=== PATIENT | female | born 1980 | race Caucasian/White ===

== ENCOUNTER 2016-09-02 01:08 | Inpatient (IN) | payer MEDICARE, MEDICAID ==
[~2016-09-02] VITALS: Ht 162.6 cm; Wt 101.7 kg
[~2016-09-02 01:08] MED LIST: /DULO30CA OR; ABIL10TA OR; EFFE37.527 OR; HYDR50TA8 OR; LAMI25TA OR; ZOLO50TA OR
[2016-09-02] MEDS ORDERED: traZODone 50 MG TAB PO PRN (02:15)
[2016-09-02] MEDS ORDERED: MOM 30ML SUSPENSION UDC PO PRN (02:15)
[2016-09-02] MEDS ORDERED: MAALOX 30 ML SUSP *UDC PO PRN (02:15)
[2016-09-02] MEDS ORDERED: PRAZ1CAP PO (02:35)
[2016-09-02] MEDS ORDERED: ATIV1TAB10 PO (02:35)
[2016-09-02] MEDS ORDERED: LAMO200T PO (02:35)
[2016-09-02] MEDS ORDERED: FERR325T3 PO (02:35)
--- NOTE | 2016-09-02 02:41 | EDDOCDS ---
Physician Documentation [facility] Name: Juliette Muller Age: 35 yrs Sex: Female : 1980 Arrival Date: 09/02/2016 Time: 01:08 Bed [facility] Private MD: Disposition: 09/02/16 02:35 Hospitalization ordered by Jace Sheriff for Inpatient Admission. Preliminary diagnosis are Major depressive disorder, recurrent, Suicidal ideations. - Bed requested for Admit. - Status is Inpatient Admission. mf4 - Condition is Stable. - Problem is an ongoing problem. - Symptoms are unchanged. Historical: - Allergies: no known allergies; - Home Meds: 1. lamotrigine 200 mg Oral tab 1 tab once daily 2. prazosin 2 mg Oral cap 1 cap nightly 3. ferrous sulfate 325 mg (65 mg iron) Oral cpER daily 4. lorazepam 0.5 mg Oral tab 1 tab nightly - PMHx: Anxiety; Depression; - PSHx: Gastric Bypass; skin removal; - Social history: Smoking status: Patient uses tobacco products, heavy tobacco smoker. No barriers to communication noted, The patient speaks fluent Uzbek. - Family history: Not pertinent. - : The pt / caregiver states he / she is not on anticoagulants. Home medication list is obtained from the facility OCT. - Exposure Risk Screening:: None identified. [employer]: 09/02 01:21 LMP 08/25/2016Aug Vital Signs: 01:22 BP 144 / 92; Pulse 83; Resp 16; Temp 96.5(T); Pulse Ox 98% on R/A; Pain 0/10; mf4 MDM: 01:30 Consult PFS/PSA/Socail Worker: Cleared medically for eval ordered. cs11 01:35 Consult PFS/PSA/Socail Worker: Cleared medically for eval complete. hm1 01:40 Financial registration complete. [facility] 01:50 [place] Payment Agreement was scanned into [employer] and attached to record. sl 02:05 Admit to IM: ordered. EDMS 02:05 REGULAR DIET ordered. EDMS 02:14 [facility] Legal paperwork was scanned into [employer] and attached to record. hm1 02:36 BED REQUEST+ADM ordered. EDMS Signatures: Dispatcher [employer] EDJannette Vazquez RN RN jan McManaman, Heather, PSA PSA hm1 Ferringo,Ayaan,REPAIR SPECIALIST REPAIR SPECIALIST mf4 Carrington Dunlap DO DO cs11 Heide Shaikh,RANDALL REPAIR SPECIALIST [facility] [place] Glynn gil The chart was reviewed and I authenticate all verbal orders and agree with the evaluation and treatment provided.Attachments: 01:50 [facility] Payment Agreement [facility] MTDD
--- NOTE | 2016-09-02 02:42 | EDDOCDS ---
Nurse's Notes [facility] Name: Juleitte Muller Age: 35 yrs Sex: Female : 1980 Arrival Date: 09/02/2016 Time: 01:08 Bed [facility] Private MD: Diagnosis: Major depressive disorder, recurrent;Suicidal ideations Presentation: 09/02 01:12 Presenting complaint: transfer from [facility] for psych evaluation. Pt is paul patient of [facility] and per patient "was taken off a lot of her meds". states she has been depressed and having thoughts of cutting herself and suicide with a plan to overdose. Mental Health Triage Level: Level 2: The patient displays active suicidal ideations. Suicide/Homicide risk assessment- The patient admits to and/or has been reported to be having suicidal ideations. The patient reports that he/she has a prior history of suicide attempt and/or organized plan. Status: Patient is not a service shop foreman or dependent. Transition of care: patient was not received from another setting of care. 01:12 Acuity: GLENDA Level 3 aug 01:12 Method Of Arrival: Ambulance aug Triage Assessment: 01:21 General: Appears in no apparent distress, Behavior is cooperative, quiet. HIV screening aug for this visit Offered previously. at [facility]. DIAMOND SIZER: 01:21 LMP 08/25/2016Aug Historical: - Allergies: no known allergies; - Home Meds: 1. lamotrigine 200 mg Oral tab 1 tab once daily 2. prazosin 2 mg Oral cap 1 cap nightly 3. ferrous sulfate 325 mg (65 mg iron) Oral cpER daily 4. lorazepam 0.5 mg Oral tab 1 tab nightly - PMHx: Anxiety; Depression; - PSHx: Gastric Bypass; skin removal; - Social history: Smoking status: Patient uses tobacco products, heavy tobacco smoker. No barriers to communication noted, The patient speaks fluent Northern Irish. - Family history: Not pertinent. - : The pt / caregiver states he / she is not on anticoagulants. Home medication list is obtained from the facility OCT. - Exposure Risk Screening:: None identified. Screenin:24 Screening information is obtained from the patient. Fall risk: No risks identified. slm Assistance ADL's: requires no assistance with activities of daily living. Abuse/DV Screen: The patient / caregiver reports he/she is: not in a situation that causes fear, pain or injury. Nutritional screening: No deficits noted. Advance Directives: Currently, there is no health care proxy. There is no active DNR order. There is no living will. There is no Power of Wire Bender Hand. Advance directive information has not previously been placed in an [facility] medical record. Further advance directive information is declined. home support is adequate. Assessment: 01:30 General: Appears in no apparent distress, Behavior is cooperative. Pain: Location: ld5 mouth Pain currently is 6 out of 10 on a pain scale. Neurological: Level of Consciousness is awake, alert. Respiratory: Airway is patent Respiratory effort is even, unlabored, Breath sounds are clear bilaterally. GI: Abdomen is obese, Bowel sounds present X 4 quads. Abd is soft and non tender X 4 quads. Denies nausea, vomiting. : Denies burning with urination, pain with urination. Derm: Skin is intact, Skin is dry. Musculoskeletal: Range of motion intact in all extremities. 01:54 General: lorazepam taken to pharmacy. . mf4 02:24 General: Appears in no apparent distress, comfortable, Behavior is cooperative, slm pleasant. Respiratory: Airway is patent Respiratory effort is even, unlabored. Mental Health Eval: 01:27 Mental health consult is initiated at 01:20. Status: The patient is not a hm1 service shop foreman or dependent. [facility] Behavioral Health: The patient is not an established patient of [facility] Behavioral Health. Referral Information: Evaluation referral is generated by Masoud. The patient was referred for evaluation because pt self-presented to [facility] due to worsening depression and thoughts of suicide. Subjective: The patients chief complaint is suicidal ideation with a plan to overdose on her pills. Delusions are denied. Patient's mood is depressed, Hallucinations are denied. Pt reports that she has been stable for the past 5-6 years on the same medications, she states that her psychiatrist, Dr. Wynn, felt that her depression had improved and subsequently discontinued most of her medications, which pt reports caused her to "go downhill fast". Pt reports that she attempted to work with her provider, she had an appointment this week and reported that she was feeling more depressed and had been having thoughts of cutting herself, however she was continued on the same regimen and pt continued to feel more depressed and anxious. Pt reports racing thoughts and taking more and more of her Ativan to attempt to maintain sleep. Pt reports feeling like she wants to cut herself "for a release" over the past month, and states that in the past 1-2 days she started to have thoughts of suicide. Pt states that she was thinking of overdosing and brought herself to the hospital because she felt that she could no longer control the thoughts. Subjective: pt also reports financial problems, states that her SSI/SSD is going to be discontinued in September 2016 as they have determined that she is no longer eligible. She states that she has been looking for work and has been unsuccessful. Mental Health history: anxiety, depression, Mental Health Admissions: pt has multiple previous psychiatric admissions, most recently 2010. Mental Health history: Current Outpatient Mental Health Services: Psychiatrist / Agency: Dr. Wynn, [facility]. Therapist / Agency: Jannette Hong [facility]. Current living environment is Family / Home Support: pt lives with her and [id number], she reports a good, supportive relationship with both. Patient presents to Emergency Department with the following symptoms within the past 2 weeks: anxiety, depressed mood, feelings of helplessness/hopelessness, labile mood, sleep disturbance - insomnia, suicidal ideation with plan for pills. Substance abuse: Pt denies. Mental status exam: Patients appearance is appropriate, Patient's behavior is cooperative, Speech is normal. Affect is flat. Mood is depressed. Hallucinations are denied. Appetite is normal. Memory is fair. Energy level is tires easily. Content of thought is depressive. with thoughts of suicide Thought process is intact. Cognitive level is oriented to person, place, time and situation Patient's insight is fair. Judgement is fair. Rapport with interviewer is good. Suicidal Ideation present with a plan to kill self by pills. Homicidal ideation is not present. 02:14 Disposition: Medically cleared for disposition by Carrington Dunlap DO Psychiatric Consult hm1 is performed by phone with Dr Jace Sheriff MD. [facility] Admission Criteria: The patient is experiencing suicidal ideation. The patient requires continuous observation and/or control to protect self, others or property. The patient's care requires a multi-modal treatment plan under close supervision and coordination due to the complexity and severity of the patient's symptoms. The patient requires administration and monitoring of psychoactive medications by skilled medical providers due to the side effects of the psychoactive medications or significant dosage adjustments. Legal Status: Patient's legal status will be [facility] admission: 937. [place] Safe Act: [place] Safe Act is applicable to this patient. The patient poses a risk to self or other and the Nursing Virtual Office Assistant has been notified. He/She will enter the patient's data. DSM-V Differential Diagnosis: Major Depressive Disorder recurrent episode (F33.0) moderate (F33.1). Insurance Pre-Certification: Not Required, Medicaid/Medicare. Family Notification: Notification to family of patient status is not currently needed or appropriate. Awaiting: referral hospital acceptance. Vital Signs: 01:22 BP 144 / 92; Pulse 83; Resp 16; Temp 96.5(T); Pulse Ox 98% on R/A; Pain 0/10; mf4 Vitals: 01:21 Log In Time N/A - ambulance arrival. aug ED Course: 01:08 Patient visited by Zoila Acevedo, [employer]. ml3 01:08 Patient moved to [facility] 01:09 Patient moved to [facility] ml3 01:19 Triage Initiated aug 01:23 Patient visited by Esteban Crabtree. rn1 01:30 Carrington Dunlap DO is Attending Physician. cs11 01:30 Patient visited by Carrington Dunlap DO. cs11 01:31 Patient visited by Esteban Crabtree. rn1 01:48 Patient visited by Esteban Crabtree. rn1 01:49 Patient name changed from Juliette\\S\\\\S\\Mcquoid\\S\\ to Juliette\\S\\Cydney\\S\\Mcquoid. EDMS 01:50 Patient name changed from Juliette\\S\\Cydney\\S\\Mcquoid\\S\\ to Juliette\\S\\E\\S\\Mcquoid. EDMS 01:50 [facility] Payment Agreement was scanned into [employer] and attached to record. slh 02:06 Patient visited by Esteban Crabtree. rn1 02:14 E Legal paperwork was scanned into [employer] and attached to record. hm1 02:21 Patient visited by Esteban Crabtree. rn1 02:24 No IV's were initiated during this patient's visit. No procedures done that require slm assistance. 02:30 Patient visited by Esteban Crabtree. rn1 02:34 Jace Sheriff MD is Hospitalizing Provider. cs11 Attachments: 02:14 [facility] Legal paperwork hm1 Order Results: There are currently no results for this order. Outcome: 02:24 Discharge Assessment: Patient awake, alert and oriented x 3. No cognitive and/or slm functional deficits noted. Patient verbalized understanding of disposition instructions. patient administered narcotics - no. The following High Risk Discharge criteria are identified: None. Admitted to Psych accompanied by tech, via wheelchair, with chart. Condition: good. No special radiology studies were completed. Property removed, inventory done, secured in belongings bag- placed in locked locker. 02:35 Decision to Hospitalize by Provider. cs11 02:40 Patient left the ED. mf4 Signatures: Dispatcher [employer] EDMS Jannette Crabtree, RN RN Zoila Hubbard, [employer] Unit ml3 Trini Lombardi, PSA PSA hm1 Jennie Lemon RN RN ld5 Ayaan Juan LPN LPN mf4 Carrington Dunlap, DO cs11 Heide Shaikh LPN LPN slm Hook, Sandra slh Newman, Robert rn1 [facility]
[2016-09-02 02:51] VITALS: BP 121/79
[2016-09-02] MEDS: ACETAMINOPHEN TAB 650MG DOSE (2X325MG) PO PRN ×3 (03:17→20:13)
--- NOTE | 2016-09-02 11:19 | HPEPDOC ---
Medical History and Physical Date of Admission Sep 02, 2016 at 02:43 History and Physical PCP: Dr Rory COATS ATTENDING: Dr. Jovany Stovall HPI: 35yoF admitted to [facility] for unspecified depressive disorder, being medically examined today. Patient is complaining of a broken tooth right lower molar. This has been aching for the past week. Teeth are in poor condition. She states she has no dentist, she would have to go to [place] and has been unable to do so. Denies any fevers, chills, weakness, fatigue, ZUNIGA, CP, SOB, cough, palpitations, abdominal pain, N/V/D or changes in bowel or bladder habits. PMHx: Depression Anxiety Poor dentition Obesity BMI 38.5 Tobacco use PSHX: Gastric bypass Plastic surgery for excess skin removal SOCHX: Resides in: [facility] Marital Status: Kids: 3 Employment: Unemployed Tobacco use: One pack per day ETOH: Denies Illicit Drugs: States history of excess Soma and Vicodin use in 2007, none since. IV Drug Use: Denies Tattoos done unprofessionally: Denies FAMHX: Mother: Alive, well Father: , [place] at 60 Siblings: She is in contact with one sister and [place] and a half sister in [place] Alive, history of obesity. She has 9 other half siblings. Children: Alive, well. Unexpected deaths due to medical reasons: None. ROS: As noted in HPI, otherwise 11pt ROS of systems reviewed and remarkable only for LMP 08/25/16 PE: GEN: 35yoF, appears stated age. Well-nourished, well developed. No acute distress. Alert and oriented x 3. Pleasant, interactive. HEENT: Normocephalic, atraumatic. Pupils are equal, round, and reactive to light. Extraocular movements are intact. No nystagmus appreciated. Sclera are nonicteric. Conjunctiva without injection. Nose midline. Nasal turbinates without bogginess. EACs both patent BL. TMs both visualized and bennett with good cone of light, no bulging or erythema. No facial asymmetry. Moist mucous membranes. Dentition poor. Rt lower posterior molar with erythema and surrounding tissue erythematous and edematous. Area is TTP. Pharynx pink and moist, no cobblestoning. Neck supple, trachea midline. No lymphadenopathy or thyromegaly appreciated. CHEST: Regular rate and rhythm, +S1, +S2 LUNGS: Clear to auscultation bilaterally. No wheezes, rales, or rhonchi. Breathing appears symmetric and easy. Patient is speaking in full sentences. No accessory muscle use. ABD: Round, soft, non-tender, non-distended. +Bowel sounds throughout. No rebound or guarding. No costovertebral angle tenderness. EXT: Pulses 2+ bilaterally dorsalis pedis and radial. No lower extremity edema appreciated. SKIN: [place], dry, warm. Capillary refill <2sec. No rashes. NEURO: Alert and oriented x 3. Cranial nerves III-XII are intact. No focal deficits appreciated. EKG: pending. Labs [facility] WBC 7.43 Hgb 14.3 Hct 42.4 Plt 404 Gluc 117 BUN 11 SCr 0.806 Cl 109 Na 140 K 4.2 ALT 23 AST 18 TSH 0.401 Hcg neg UA neg. Toxicology Unremarkable. A&P: 35yoF admitted to [facility] for unspecified depressive disorder, 1. Psych. Plan per Psychiatry. Obtain baseline EKG to assure the safety of psychiatric medications as they can prolong the QT interval. 2. Nicotine dependence. Patch available. 3. Poor dentition/dental infection. Augmentin 875 mg by mouth twice a day. Tylenol 650 mg every 4 hours as needed. Arrange dental care follow-up at discharge. 4. Follow up with PCP on discharge. 5. Member was present throughout exam, Minal RIVERA. Vital Signs Vital Signs Label Value Date Time Patient Temperature 95.8 degrees F 09/02/16 0251 Temperature Source Tympanic 09/02/16 0251 Pulse 79 09/02/16 0251 Respiratory Rate 16 bpm 09/02/16 0251 Blood Pressure Assessment 121/79 (93) 09/02/16 0251 Home Medications Scheduled Ferrous Sulfate (Ferrous Sulfate) 325 Mg Tab 325 MG PO DAILY Lamotrigine (Lamotrigine) 200 Mg Tab 200 MG PO DAILY Lorazepam (Ativan) 0.5 Mg Tab 0.5 MG PO QHS Prazosin Hcl (Prazosin HCl) 1 Mg Cap 1 MG PO ASDIRECTED started taking 1 cap qhs and supposed to increase to 2 caps qhs on 09/01 but has not had dose yet Allergies Coded Allergies: No Known Drug Allergy (Verified Allergy, Unknown, 11/14/12) Yolanda Vera Sep 02, 2016 11:19
[2016-09-02] MEDS: NICOTINE 21MG/24HR 1 EA TRANSDERMAL TD SCH (11:34)
[2016-09-02] MEDS: AUGMENTIN 875 MG TAB PO SCH ×2 (12:14→20:13)
[2016-09-02 18:00] VITALS: BP 123/77
--- NOTE | 2016-09-02 18:43 | ECGEPIP ---
Stationary ECG Study [facility] Test Date: 2016-09-02 Pat Name: TRACY ROB Department: Room: [place] [address] Gender: F Day Care Provider: : 1980 Requested By: Yolanda Vera Order Number: [id number] Reading MD: Terry Noriega Measurements Intervals Bowman Rate: 59 P: 1 WY: 137 QRS: 82 QRSD: 100 T: 50 QT: 402 QTc: 400 Interpretive Statements SINUS BRADYCARDIA WITH MARKED SINUS ARRHYTHMIA NO PRIOR TRACING IN THE SYSTEM Electronically Signed On 09-02-2016 18:43:27 EST by Terry Noriega
[2016-09-02] MEDS: ARIPiprazole 10 MG TAB PO SCH (20:13)
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
[2016-09-03] MEDS: ACETAMINOPHEN TAB 650MG DOSE (2X325MG) PO PRN ×3 (03:25→21:38)
[2016-09-03 06:19] VITALS: BP 130/90
[2016-09-03] MEDS: NICOTINE 21MG/24HR 1 EA TRANSDERMAL TD SCH (08:48)
[2016-09-03] MEDS: lamoTRIgine 100MG TAB PO SCH (08:53)
[2016-09-03] MEDS: AUGMENTIN 875 MG TAB PO SCH ×2 (08:53→20:31)
[2016-09-03] MEDS: FERROUS SULFATE 325MG TAB PO SCH (08:53)
[2016-09-03] MEDS ORDERED: buPROPion **XL** TABLET 150MG (WELLBUTRIN XL) PO SCH (09:00)
[2016-09-03] MEDS: buPROPion 75 MG TAB PO SCH (12:27)
[2016-09-03] MEDS: BENZOCAINE 7.5 % LIQ (BABY ORAJEL) TOP PRN ×2 (13:18→20:31)
[2016-09-03 18:00] VITALS: BP 98/56
[2016-09-03] MEDS: ARIPiprazole 10 MG TAB PO SCH (20:31)
--- NOTE | 2016-09-03 23:30 | IPNPDOC ---
[facility] Progress Note Progress Note DATE: 09/03/16 SUBJECTIVE: Patient reports mood as good. She reports intensely level of depression at 0/10. She reports intensely level of anxiety at 0/10. Patient attributes this to the appreciation for all of her support from her family and friends during this admission. She is medically compliant. She reports attending groups and not suffering with hypersomnolence as she did prior to admission. She feels more energetic and to concentrate. She denies thoughts to self injure today. She reports feeling upset that she has dealt with the mental health issue she has over the last month. She reports she will likely find a new patient mental health provider. He expresses upset that she was encouraged to discontinue a medication regimen that had kept her stable psychiatrically over the last 5 years. Patient reports no medication side effects. She reports no issues initiating sleep, but reported waking last night from her sleep due to dental pain. She reports taking a Tylenol and being able to get back to sleep within 1 hour. Patient reports sleeping 7-8 hours last night. Appetite within normal limits. She denies issues with staff or peers on the unit. Patient denies SI/HI, she also denies AH/VH. No bizarre behavior, thoughts, affect, or delusional thoughts expressed during this interview. VITAL SIGNS: Please see below. CURRENT MEDICATIONS: See below. MENTAL STATUS EXAMINATION: Patient is a pleasant, cooperative, obese, causasian female in NAD]. Speech: Is RRR and spontaneous]. Thought processes: [Linear & Goal directed.] Thought content: [Logical, appropriate]. Description of associations: [appropriate]. Description of abnormal or psychotic thoughts: [no perceptual issues] Judgment: [good] Insight: [good] Oriented to: [Time, place and person.] Recent and Remote Memory: [good]. Attention Span and Concentration: [good]. Fund of knowledge: [Adequate] Mood: [euthymic]. Affect: [broad]. ASSESSMENT: [-Bipolar 2 d/o, MRE depressed w/o PFs -PTSD]. PLAN: -Continue remaining psychotropic regimen as currently written. -Continue all home medical medications as written. EDOD: 09/05/16 to her home. TIME SPENT: [30] minutes Vital Signs Vital Signs Date Time Temp Pulse Resp B/P Pulse Ox O2 Delivery O2 Flow Rate FiO2 09/03/16 18:00 97.2 73 16 98/56 Current Medications Current Medications Acetaminophen (Tylenol) 650 mg Q6HP PRN PO HEADACHE or DISCOMFORT Last administered on 09/03/16 21:38; Start 09/02/16 at 02:15; Stop 10/02/16 at 02:14 Al Hydrox/Mg Hydrox/Simethicone (Mylanta) 30 ml Q4HP PRN PO HEARTBURN/ INDIGESTION; Start 09/02/16 at 02:15; Stop 10/02/16 at 02:14 Amoxicillin/ Clavulanate Potassium (Augmentin) 875 mg BID PO Last administered on 09/03/16 20:31; Start 09/02/16 at 09:00; Stop 09/11/16 at 21:01 Aripiprazole (AbiLIFY) 10 mg QHS PO Last administered on 09/03/16 20:31; Start 09/02/16 at 21:00; Stop 10/02/16 at 20:59 Benzocaine (Orajel 7.5%) 1 dose Q3HP PRN TOP DENTAL PAIN Last administered on 20:31; Start 09/03/16 at 09:15; Stop 10/03/16 at 09:14 Bupropion HCl (Wellbutrin Xl) 75 mg DAILY PO ; Start 09/03/16 at 09:00; Stop at 12:10; Status DC Bupropion HCl (Wellbutrin) 75 mg DAILY PO Last administered on 09/03/16 12:27 ; Start 09/03/16 at 09:00; Stop 10/03/16 at 08:59 Ferrous Sulfate (Ferrous Sulfate) 325 mg DAILY PO Last administered on 08:53; Start 09/03/16 at 09:00; Stop 10/03/16 at 08:59 Home Med (Med Rec Complete!) ASDIRECTED XX ; Start 09/02/16 at 02:45; Stop at 03:32; Status DC Lamotrigine (LaMICtal) 200 mg QAM PO Last administered on 09/03/16 08:53; Start 09/03/16 at 09:00; Stop 10/03/16 at 08:59 Magnesium Hydroxide (Milk Of Magnesia) 30 ml DAILYPRN PRN PO CONSTIPATION; Start 09/02/16 at 02:15; Stop 10/02/16 at 02:14 Nicotine (Nicoderm Cq 21mg) 1 patch DAILY TD Last administered on 09/02/16t 11: 34; Start 09/02/16 at 09:00; Stop 10/02/16 at 08:59 Trazodone HCl (Desyrel) 50 mg QHSP PRN PO INSOMNIA; Start 09/02/16 at 02:15; Stop 10/02/16 at 02:14 Allergies Coded Allergies: No Known Drug Allergy (Verified Allergy, Unknown, 11/14/12) KRISTEL CANTRELL MD Sep 03, 2016 23:30
--- NOTE | 2016-09-04 03:42 | EDDOCDS ---
Physician Documentation [facility] Name: Juliette Muller Age: 35 yrs Sex: Female : 1980 Arrival Date: 09/02/2016 Time: 01:08 Bed [facility] Private MD: Disposition: 09/02/16 02:35 Hospitalization ordered by Jace Sheriff for Inpatient Admission. Preliminary diagnosis are Major depressive disorder, recurrent, Suicidal ideations. - Bed requested for Admit. - Status is Inpatient Admission. mf4 - Condition is Stable. - Problem is an ongoing problem. - Symptoms are unchanged. Historical: - Allergies: no known allergies; - Home Meds: 1. lamotrigine 200 mg Oral tab 1 tab once daily 2. prazosin 2 mg Oral cap 1 cap nightly 3. ferrous sulfate 325 mg (65 mg iron) Oral cpER daily 4. lorazepam 0.5 mg Oral tab 1 tab nightly - PMHx: Anxiety; Depression; - PSHx: Gastric Bypass; skin removal; - Social history: Smoking status: Patient uses tobacco products, heavy tobacco smoker. No barriers to communication noted, The patient speaks fluent Central African. - Family history: Not pertinent. - : The pt / caregiver states he / she is not on anticoagulants. Home medication list is obtained from the facility OCT. - Exposure Risk Screening:: None identified. ACID CUTTER: 09/02 01:21 LMP 08/25/2016Aug Vital Signs: 01:22 BP 144 / 92; Pulse 83; Resp 16; Temp 96.5(T); Pulse Ox 98% on R/A; Pain 0/10; mf4 MDM: 01:30 Consult PFS/PSA/Socail Worker: Cleared medically for eval ordered. cs11 01:35 Consult PFS/PSA/Socail Worker: Cleared medically for eval complete. hm1 01:40 Financial registration complete. sl 01:50 [facility] Payment Agreement was scanned into [employer] and attached to record. slh 02:05 Admit to IM: ordered. EDMS 02:05 REGULAR DIET ordered. EDMS 02:14 MHE Legal paperwork was scanned into [employer] and attached to record. hm1 02:36 BED REQUEST+ADM ordered. EDMS 14:20 T-Sheet-- Draft Copy was scanned into [employer] and attached to record. gb 09/03 09:32 PCR was scanned into [employer] and attached to record. Signatures: Dispatcher [employer] EDJannette Vazquez RN RN Fara Platt, Reg Reg gb Trini Lombardi, PSA PSA hm1 Ayaan Juan,DIRECTOR ACUTE DIRECTOR ACUTE mf4 Carrington Dunlap, DO cs11 Heide Shaikh,DIRECTOR ACUTE DIRECTOR ACUTE [place] [facility] The chart was reviewed and I authenticate all verbal orders and agree with the evaluation and treatment provided.Attachments: 09/02 01:50 [facility] Payment Agreement [facility] 14:20 T-Sheet-- Draft Copy Chart Complete MTDD
--- NOTE | 2016-09-04 03:42 | EDDOCDS ---
Nurse's Notes [facility] Name: Juliette Muller Age: 35 yrs Sex: Female : 1980 Arrival Date: 09/02/2016 Time: 01:08 Bed [facility] Private MD: Diagnosis: Major depressive disorder, recurrent;Suicidal ideations Presentation: 09/02 01:12 Presenting complaint: transfer from [facility] for psych evaluation. Pt is paul patient of [facility] and per patient "was taken off a lot of her meds". states she has been depressed and having thoughts of cutting herself and suicide with a plan to overdose. Mental Health Triage Level: Level 2: The patient displays active suicidal ideations. Suicide/Homicide risk assessment- The patient admits to and/or has been reported to be having suicidal ideations. The patient reports that he/she has a prior history of suicide attempt and/or organized plan. Status: Patient is not a guest service supervisor or dependent. Transition of care: patient was not received from another setting of care. 01:12 Acuity: GLENDA Level 3 aug 01:12 Method Of Arrival: Ambulance aug Triage Assessment: 01:21 General: Appears in no apparent distress, Behavior is cooperative, quiet. HIV screening aug for this visit Offered previously. at [facility]. HOUSING COUNSELOR: 01:21 LMP 08/25/2016Aug Historical: - Allergies: no known allergies; - Home Meds: 1. lamotrigine 200 mg Oral tab 1 tab once daily 2. prazosin 2 mg Oral cap 1 cap nightly 3. ferrous sulfate 325 mg (65 mg iron) Oral cpER daily 4. lorazepam 0.5 mg Oral tab 1 tab nightly - PMHx: Anxiety; Depression; - PSHx: Gastric Bypass; skin removal; - Social history: Smoking status: Patient uses tobacco products, heavy tobacco smoker. No barriers to communication noted, The patient speaks fluent Nicaraguan. - Family history: Not pertinent. - : The pt / caregiver states he / she is not on anticoagulants. Home medication list is obtained from the facility OCT. - Exposure Risk Screening:: None identified. Screenin:24 Screening information is obtained from the patient. Fall risk: No risks identified. slm Assistance ADL's: requires no assistance with activities of daily living. Abuse/DV Screen: The patient / caregiver reports he/she is: not in a situation that causes fear, pain or injury. Nutritional screening: No deficits noted. Advance Directives: Currently, there is no health care proxy. There is no active DNR order. There is no living will. There is no Power of [employer]. Advance directive information has not previously been placed in an [facility] medical record. Further advance directive information is declined. home support is adequate. Assessment: 01:30 General: Appears in no apparent distress, Behavior is cooperative. Pain: Location: ld5 mouth Pain currently is 6 out of 10 on a pain scale. Neurological: Level of Consciousness is awake, alert. Respiratory: Airway is patent Respiratory effort is even, unlabored, Breath sounds are clear bilaterally. GI: Abdomen is obese, Bowel sounds present X 4 quads. Abd is soft and non tender X 4 quads. Denies nausea, vomiting. : Denies burning with urination, pain with urination. Derm: Skin is intact, Skin is dry. Musculoskeletal: Range of motion intact in all extremities. 01:54 General: lorazepam taken to pharmacy. . mf4 02:24 General: Appears in no apparent distress, comfortable, Behavior is cooperative, slm pleasant. Respiratory: Airway is patent Respiratory effort is even, unlabored. Mental Health Eval: 01:27 Mental health consult is initiated at 01:20. Status: The patient is not a hm1 guest service supervisor or dependent. [facility] Behavioral Health: The patient is not an established patient of [facility] Behavioral Health. Referral Information: Evaluation referral is generated by Masoud. The patient was referred for evaluation because pt self-presented to [facility] due to worsening depression and thoughts of suicide. Subjective: The patients chief complaint is suicidal ideation with a plan to overdose on her pills. Delusions are denied. Patient's mood is depressed, Hallucinations are denied. Pt reports that she has been stable for the past 5-6 years on the same medications, she states that her psychiatrist, Dr. Wynn, felt that her depression had improved and subsequently discontinued most of her medications, which pt reports caused her to "go downhill fast". Pt reports that she attempted to work with her provider, she had an appointment this week and reported that she was feeling more depressed and had been having thoughts of cutting herself, however she was continued on the same regimen and pt continued to feel more depressed and anxious. Pt reports racing thoughts and taking more and more of her Ativan to attempt to maintain sleep. Pt reports feeling like she wants to cut herself "for a release" over the past month, and states that in the past 1-2 days she started to have thoughts of suicide. Pt states that she was thinking of overdosing and brought herself to the hospital because she felt that she could no longer control the thoughts. Subjective: pt also reports financial problems, states that her SSI/SSD is going to be discontinued in September 2016 as they have determined that she is no longer eligible. She states that she has been looking for work and has been unsuccessful. Mental Health history: anxiety, depression, Mental Health Admissions: pt has multiple previous psychiatric admissions, most recently 2010. Mental Health history: Current Outpatient Mental Health Services: Psychiatrist / Agency: Dr. Wynn, [facility]. Therapist / Agency: Jannette Hong [facility]. Current living environment is Family / Home Support: pt lives with her and [id number], she reports a good, supportive relationship with both. Patient presents to Emergency Department with the following symptoms within the past 2 weeks: anxiety, depressed mood, feelings of helplessness/hopelessness, labile mood, sleep disturbance - insomnia, suicidal ideation with plan for pills. Substance abuse: Pt denies. Mental status exam: Patients appearance is appropriate, Patient's behavior is cooperative, Speech is normal. Affect is flat. Mood is depressed. Hallucinations are denied. Appetite is normal. Memory is fair. Energy level is tires easily. Content of thought is depressive. with thoughts of suicide Thought process is intact. Cognitive level is oriented to person, place, time and situation Patient's insight is fair. Judgement is fair. Rapport with interviewer is good. Suicidal Ideation present with a plan to kill self by pills. Homicidal ideation is not present. 02:14 Disposition: Medically cleared for disposition by Carrington Dunlap DO Psychiatric Consult hm1 is performed by phone with Dr Jace Sheriff MD. [facility] Admission Criteria: The patient is experiencing suicidal ideation. The patient requires continuous observation and/or control to protect self, others or property. The patient's care requires a multi-modal treatment plan under close supervision and coordination due to the complexity and severity of the patient's symptoms. The patient requires administration and monitoring of psychoactive medications by skilled medical providers due to the side effects of the psychoactive medications or significant dosage adjustments. Legal Status: Patient's legal status will be [facility] admission: 937. [place] Safe Act: [place] Safe Act is applicable to this patient. The patient poses a risk to self or other and the Nursing Physiologist has been notified. He/She will enter the patient's data. DSM-V Differential Diagnosis: Major Depressive Disorder recurrent episode (F33.0) moderate (F33.1). Insurance Pre-Certification: Not Required, Medicaid/Medicare. Family Notification: Notification to family of patient status is not currently needed or appropriate. Awaiting: referral hospital acceptance. Vital Signs: 01:22 BP 144 / 92; Pulse 83; Resp 16; Temp 96.5(T); Pulse Ox 98% on R/A; Pain 0/10; mf4 Vitals: 01:21 Log In Time N/A - ambulance arrival. aug ED Course: 01:08 Patient visited by Zoila Acevedo, Manager Immunology. ml3 01:08 Patient moved to [facility] 01:09 Patient moved to [facility] ml3 01:19 Triage Initiated aug 01:23 Patient visited by Esteban Crabtree. rn1 01:30 Carrington Dunlap DO is Attending Physician. cs11 01:30 Patient visited by Carrington Dunlap DO. cs11 01:31 Patient visited by Esteban Crabtree. rn1 01:48 Patient visited by Esteban Crabtree. rn1 01:49 Patient name changed from Juliette\\S\\\\S\\Mcquoid\\S\\ to Juliette\\S\\Cydney\\S\\Mcquoid. EDMS 01:50 Patient name changed from Juliette\\S\\Cydney\\S\\Mcquoid\\S\\ to Juliette\\S\\E\\S\\Mcquoid. EDMS 01:50 [facility] Payment Agreement was scanned into [employer] and attached to record. slh 02:06 Patient visited by Esteban Crabtree. rn1 02:14 E Legal paperwork was scanned into [employer] and attached to record. hm1 02:21 Patient visited by Esteban Crabtree. rn1 02:24 No IV's were initiated during this patient's visit. No procedures done that require slm assistance. 02:30 Patient visited by Esteban Crabtree. rn1 02:34 Jace Sheriff MD is Hospitalizing Provider. cs11 14:20 T-Sheet-- Draft Copy was scanned into [employer] and attached to record. gb 09/03 09:32 PCR was scanned into [employer] and attached to record. gb Attachments: 02:14 MHE Legal paperwork hm1 Order Results: There are currently no results for this order. Outcome: 09/02 02:24 Discharge Assessment: Patient awake, alert and oriented x 3. No cognitive and/or slm functional deficits noted. Patient verbalized understanding of disposition instructions. patient administered narcotics - no. The following High Risk Discharge criteria are identified: None. Admitted to Psych accompanied by tech, via wheelchair, with chart. Condition: good. No special radiology studies were completed. Property removed, inventory done, secured in belongings bag- placed in locked locker. 02:35 Decision to Hospitalize by Provider. cs11 02:40 Patient left the ED. mf4 Signatures: Dispatcher [employer] EDMS Jannette Crabtree, Fara Cheema RN, Reg Reg Kristina, Zoila, Manager Immunology Unit ml3 Trini Lombardi, PSA PSA hm1 Jennie LemonRN RN ld5 Ayaan Juan LPN LPN mf4 Carrington Dunlap, DO cs11 Heide Shaikh LPN LPN slm Hook, Sandra slh Newman, Robert rn1 Chart Complete MTDD
--- NOTE | 2016-09-04 03:42 | EDDOCDS ---
Physician Documentation [facility] Name: Juliette Muller Age: 35 yrs Sex: Female : 1980 Arrival Date: 09/02/2016 Time: 01:[address] [facility] Private MD: Disposition: 09/02/16 02:35 Hospitalization ordered by Jace Sheriff for Inpatient Admission. Preliminary diagnosis are Major depressive disorder, recurrent, Suicidal ideations. - Bed requested for Admit. - Status is Inpatient Admission. mf4 - Condition is Stable. - Problem is an ongoing problem. - Symptoms are unchanged. Historical: - Allergies: no known allergies; - Home Meds: 1. lamotrigine 200 mg Oral tab 1 tab once daily 2. prazosin 2 mg Oral cap 1 cap nightly 3. ferrous sulfate 325 mg (65 mg iron) Oral cpER daily 4. lorazepam 0.5 mg Oral tab 1 tab nightly - PMHx: Anxiety; Depression; - PSHx: Gastric Bypass; skin removal; - Social history: Smoking status: Patient uses tobacco products, heavy tobacco smoker. No barriers to communication noted, The patient speaks fluent Mongolian. - Family history: Not pertinent. - : The pt / caregiver states he / she is not on anticoagulants. Home medication list is obtained from the facility OCT. - Exposure Risk Screening:: None identified. SIZING SPONGER: 09/02 01:21 LMP 08/25/2016Aug Vital Signs: 01:22 BP 144 / 92; Pulse 83; Resp 16; Temp 96.5(T); Pulse Ox 98% on R/A; Pain 0/10; mf4 MDM: 01:30 Consult PFS/PSA/Socail Worker: Cleared medically for eval ordered. cs11 01:35 Consult PFS/PSA/Socail Worker: Cleared medically for eval complete. hm1 01:40 Financial registration complete. sl 01:50 [facility] [place] Payment Agreement was scanned into [employer] and attached to record. slh 02:05 Admit to IM: ordered. EDMS 02:05 REGULAR DIET ordered. EDMS 02:14 MHE Legal paperwork was scanned into [employer] and attached to record. hm1 02:36 BED REQUEST+ADM ordered. EDMS 14:20 T-Sheet-- Draft Copy was scanned into [employer] and attached to record. gb 09/03 09:32 PCR was scanned into [employer] and attached to record. Signatures: Dispatcher [employer] EDJannette Vazquez RN RN Fara Platt, Reg Reg gb Trini Lombardi, PSA PSA hm1 Ayaan Juan,RABBLE FURNACE TENDER RABBLE FURNACE TENDER mf4 Carrington Dunlap, DO cs11 Heide Shaikh,RABBLE FURNACE TENDER RABBLE FURNACE TENDER [place] [facility] [facility] The chart was reviewed and I authenticate all verbal orders and agree with the evaluation and treatment provided.Attachments: 09/02 01:50 [facility] Payment Agreement [facility] 14:20 T-Sheet-- Draft Copy Chart Complete MTDD
[2016-09-04 06:21] VITALS: BP 125/61
[2016-09-04] MEDS: NICOTINE 21MG/24HR 1 EA TRANSDERMAL TD SCH (08:30)
[2016-09-04] MEDS: lamoTRIgine 100MG TAB PO SCH (08:32)
[2016-09-04] MEDS: buPROPion 75 MG TAB PO SCH (08:32)
[2016-09-04] MEDS: AUGMENTIN 875 MG TAB PO SCH ×2 (08:32→20:43)
[2016-09-04] MEDS: FERROUS SULFATE 325MG TAB PO SCH (08:32)
[2016-09-04] MEDS: ACETAMINOPHEN TAB 650MG DOSE (2X325MG) PO PRN (15:46)
[2016-09-04 18:05] VITALS: BP 123/72
[2016-09-04] MEDS: ARIPiprazole 10 MG TAB PO SCH (20:43)
[2016-09-04] MEDS ORDERED: diphenhydrAMINE 25 MG CAP PO ONE (22:00)
[2016-09-05] MEDS: BENZOCAINE 7.5 % LIQ (BABY ORAJEL) TOP PRN (03:12)
[2016-09-05] MEDS: ACETAMINOPHEN TAB 650MG DOSE (2X325MG) PO PRN ×2 (03:13→11:43)
[2016-09-05 06:32] VITALS: BP 129/73
[2016-09-05] MEDS: FERROUS SULFATE 325MG TAB PO SCH (08:30)
[2016-09-05] MEDS: buPROPion 75 MG TAB PO SCH (08:30)
[2016-09-05] MEDS: AUGMENTIN 875 MG TAB PO SCH (08:30)
[2016-09-05] MEDS: lamoTRIgine 100MG TAB PO SCH (08:30)
[2016-09-05] MEDS: NICOTINE 21MG/24HR 1 EA TRANSDERMAL TD SCH (08:31)
[2016-09-05] MEDS ORDERED: NICO21PAT TD (08:38)
[2016-09-05] MEDS ORDERED: AMOX875T2 PO (08:38)
[2016-09-05] MEDS ORDERED: BUPR10TASR PO (11:10)
[2016-09-05] MEDS ORDERED: LAMO10TA PO ×2 (11:10→11:14)
[2016-09-05] MEDS ORDERED: ARIP10TAB PO (11:11)
--- NOTE | 2016-09-05 11:41 | IPNPDOC ---
[facility] Progress Note Progress Note DATE OF SERVICE: 09/04/16 UBJECTIVE: Patient reports mood as upset. She reports increasing sense of anger to being with a roommate who is actively withdrawing from opiates. She reports this is a stressor as it triggers memories of her own substance addiction. She reports sleeping using coping mechanisms including walking and breathing techniques to not lose her composure. She continues to report in intensity of depression at 0/10. She reports intensely level of anxiety at 0/10. She is medically compliant. She reports attending groups, which she reports are beneficial. She denies thoughts to self injure today. Patient reports no medication side effects. She reports no issues initiating sleep, but reported again waking last night from her sleep due to dental pain. She is aware she has 7 days left of her Augmentin prescription. She was instructed to take Tylenol at bedtime so not to be can from her sleep due to dental pain. Patient reports sleeping 7-8 hours last night. Appetite within normal limits. Patient denies SI /HI, she also denies AH/VH. No bizarre behavior, thoughts, affect, or delusional thoughts expressed during this interview. VITAL SIGNS: Please see below. CURRENT MEDICATIONS: See below. MENTAL STATUS EXAMINATION: Patient is a pleasant, cooperative, obese, causasian female in NAD]. Speech: Is RRR and spontaneous]. Thought processes: [Linear & Goal directed.] Thought content: [focused on maintaining composure and using coping skills with stressor from her roommate who is in withdrawals]. Description of associations: [appropriate]. Description of abnormal or psychotic thoughts: [no perceptual issues] Judgment: [good] Insight: [good] Oriented to: [Time, place and person.] Recent and Remote Memory: [good]. Attention Span and Concentration: [good]. Fund of knowledge: [Adequate] Mood: [euthymic]. Affect: [broad]. ASSESSMENT: [-Bipolar 2 d/o, MRE depressed w/o PFs -PTSD]. PLAN: -Continue remaining psychotropic regimen as currently written. -Continue all home medical medications as written. -Per communication with patient's spouse, she feels patient is stable for discharge and is comfortable with patient discharging back to their home. -Tentative discharge tomorrow morning. EDOD: 09/05/16 to her home. TIME SPENT: [30] minutes Vital Signs Vital Signs Date Time Temp Pulse Resp B/P Pulse Ox O2 Delivery O2 Flow Rate FiO2 09/05/16 06:32 99.5 71 20 129/73 Current Medications Current Medications Acetaminophen (Tylenol) 650 mg Q6HP PRN PO HEADACHE or DISCOMFORT Last administered on 09/05/16 03:13; Start 09/02/16 at 02:15; Stop 10/02/16 at 02:14 Al Hydrox/Mg Hydrox/Simethicone (Mylanta) 30 ml Q4HP PRN PO HEARTBURN/ INDIGESTION; Start 09/02/16 at 02:15; Stop 10/02/16 at 02:14 Amoxicillin/ Clavulanate Potassium (Augmentin) 875 mg BID PO Last administered on 09/05/16 08:30; Start 09/02/16 at 09:00; Stop 09/11/16 at 21:01 Aripiprazole (AbiLIFY) 10 mg QHS PO Last administered on 09/04/16 20:43; Start 09/02/16 at 21:00; Stop 10/02/16 at 20:59 Benzocaine (Orajel 7.5%) 1 dose Q3HP PRN TOP DENTAL PAIN Last administered on 03:12; Start 09/03/16 at 09:15; Stop 10/03/16 at 09:14 Bupropion HCl (Wellbutrin Sr) 100 mg DAILY PO ; Start 09/06/16 at 09:00; Stop at 08:59 Bupropion HCl (Wellbutrin Xl) 75 mg DAILY PO ; Start 09/03/16 at 09:00; Stop at 12:10; Status DC Bupropion HCl (Wellbutrin) 75 mg DAILY PO Last administered on 09/05/16 08:30 ; Start 09/03/16 at 09:00; Stop 09/05/16 at 09:36; Status DC Ferrous Sulfate (Ferrous Sulfate) 325 mg DAILY PO Last administered on 08:30; Start 09/03/16 at 09:00; Stop 10/03/16 at 08:59 Home Med (Med Rec Complete!) ASDIRECTED XX ; Start 09/02/16 at 02:45; Stop at 03:32; Status DC Lamotrigine (LaMICtal) 200 mg QAM PO Last administered on 09/05/16 08:30; Start 09/03/16 at 09:00; Stop 10/03/16 at 08:59 Magnesium Hydroxide (Milk Of Magnesia) 30 ml DAILYPRN PRN PO CONSTIPATION; Start 09/02/16 at 02:15; Stop 10/02/16 at 02:14 Nicotine (Nicoderm Cq 21mg) 1 patch DAILY TD Last administered on 09/02/16 11: 34; Start 09/02/16 at 09:00; Stop 10/02/16 at 08:59 Trazodone HCl (Desyrel) 50 mg QHSP PRN PO INSOMNIA; Start 09/02/16 at 02:15; Stop 10/02/16 at 02:14 Allergies Coded Allergies: No Known Drug Allergy (Verified Allergy, Unknown, 11/14/12) KRISTEL CANTRELL MD Sep 05, 2016 11:41
[2016-09-05] MEDS ORDERED: TYLE325T5 PO (11:43)
[2016-09-05] MEDS ORDERED: orajel TOP (11:49)
--- NOTE | 2016-09-05 14:18 | DS.PDOC ---
[facility] Discharge Summary Discharge Summary DATE OF ADMISSION: Sep 02, 2016 at 02:43 DATE OF DISCHARGE: HISTORY: TREATMENT AND PROGRESS ON THE UNIT: . MENTAL STATUS EXAMINATION ON DISCHARGE: Patient is a -year old female, who is [pleasant, cooperative, well kempt], [tall , overweight, thin, elderly, obese, frail build]. Speech: Is [pressured, tangential, circumstantial, flight of ideas, rate, volume, articulate, coherent, and spontaneous]. Thought processes: [Clear, Not goal-directed or Goal directed.] Rate of thoughts: . Thought content: [Irrational, Logical, Illogical, Tangential, Paranoid]. Abstract reasoning: . Computation: . Associations: [Loose, Tangential, Circumstantial, Intact]. Abnormal or psychotic thoughts: [Hallucinations, Delusions, Preoccupation with violence, Homicidal or suicidal ideation, and Obsessions.] Judgment: [Fair, Good, Very limited, Poor.] Insight: [Very limited, Good, Fair, Poor] Oriented to: [Time, place and person.] Recent and Remote Memory: [Immediate, short-term and long-term memory is intact] . Attention Span and Concentration: [Poor, Good, Fair]. Language: [Normal]. Fund of knowledge: [Adequate, Intact, Poor, Fair, Good]. Mood: [Irrational, Elated, Irritable, Depressed, Anxious, Restricted, Neutral]. Affect: [Appropriate, Reactive, Flat, Constricted, Animated, Irrational, Expansive, Restricted, Depressed, Anxious, Agitated, Hypomania, Lability]. MEDICATIONS ON DISCHARGE: - for . - for . - for . DIAGNOSES ON DISCHARGE: 1. . 2. . 3. . FOLLOWUP ARRANGEMENTS: . TIME SPENT: minutes. Vital Signs Vital Sign - Last 24 Hours 09/04/16 09/05/16 18:05 06:32 Temp 96.7 99.5 Pulse 86 71 Resp 18 20 B/P 123/72 129/73 Medications Scheduled Amoxicillin/Clavulanate Potas (Amoxicillin/Clavulanate P 875-125 mg) 1 Tab Tab 875 MG PO BID infection Aripiprazole (Aripiprazole) 10 Mg Tab 10 MG PO QHS mood stabilization Bupropion Hcl (Wellbutrin Sr) 100 Mg Tabsr 100 MG PO DAILY ptsd Ferrous Sulfate (Ferrous Sulfate) 325 Mg Tab 325 MG PO DAILY (Reported) Lamotrigine (LaMICtal) 100 Mg Tab 200 MG PO QAM Bipolar 2 d/o Nicotine (Nicotine Transdermal Syst) 21 Mg/24 Hr Dis 1 PATCH TD DAILY SMOKING CESSATION Scheduled PRN Acetaminophen (Tylenol) 325 Mg Tab 650 MG PO Q6HP PRN PRN PAIN OR FEVER ( Reported) Miscellaneous Medications ([orajel]) TOP dental pain (Reported) Allergies Coded Allergies: No Known Drug Allergy (Verified Allergy, Unknown, 11/14/12) KRISTEL CANTRELL MD Sep 05, 2016 14:18
[2016-09-06] MEDS ORDERED: buPROPion (WELLBUTRIN SR) 100 MG SR TAB PO SCH (09:00)
== END 2016-09-05 12:45 | disposition home or self-care (01) | DRG 885 ==
LOC: M ED 01:08 → M PSY 02:43
PROVIDERS: ADMIT Psychiatry & Neurology Psychiatry; ATTEND Psychiatry & Neurology Psychiatry
DX: F31.81 Bipolar II disorder (principal); F43.10 Post-traumatic stress disorder, unspecified; F17.200 Nicotine dependence, unspecified, uncomplicated; E66.9 Obesity, unspecified; Z68.38 Body mass index [BMI] 38.0-38.9, adult; K04.7 Periapical abscess without sinus